=== PATIENT | female | born 1960 | race Caucasian/White ===

== ENCOUNTER 2021-12-17 09:05 | Outpatient (REF) | payer OTHER, SELFPAY ==
[2021-12-17 09:45] LABS: COVID-19 Test Positive (Negative)
== END 2021-12-17 09:06 | disposition home or self-care (01) ==
LOC: HO.LAB 09:05
PROVIDERS: Visit Provider Internal Medicine
DX: Z20.822 Contact with and (suspected) exposure to COVID-19 (principal)
CPT/HCPCS: 87635; C9803

== ENCOUNTER 2024-10-31 18:07 | Emergency (ER) | payer MEDICARE, SELFPAY ==
[2024-10-31] VITALS (13 sets, daily range): BP systolic 134–180; BP diastolic 79–101; PULSE 25–114; RESP 14–31; TEMP 36.4–37; O2SAT 90–96; BMI 22.7
--- NOTE | ~2024-10-31 | XR_ITS ---
CLINICAL HISTORY: hypoxia 1 view chest x-ray Comparison: None Findings: Extensive bilateral multifocal patchy opacities with air bronchograms. Moderate/large right and small left bilateral layering effusions. No pneumothorax. Enlarged cardiac silhouette. No acute fracture. IMPRESSION: 1. Extensive bilateral airspace disease concerning for pneumonia. 2. Moderate/large right and small left bilateral layering effusions. This document has been electronically signed by: Ismael Cabrera MD on 10/31/2024 19:37:48
--- NOTE | ~2024-10-31 | XR_ITS ---
CLINICAL HISTORY: right pleural effusion Chest decub with right ribs Comparison: CR/WI - XR CHEST 1V - 10/31/24 19:06 EDT Findings: Right 6th lateral rib fracture. Increasing diffuse bilateral patchy opacities with air bronchograms, left worse than right. Increasing small-moderate left layering effusion. Slightly improved moderate right layering effusion. No pneumothorax. Similar prominent/enlarged cardiac silhouette. IMPRESSION: 1. Increasing diffuse bilateral patchy opacities with air bronchograms, left worse than right. 2. Worsening airspace disease, left worse than right. 3. Increasing small-moderate left layering effusion. 4. Slightly improved moderate right layering effusion. 5. Right 6th lateral rib fracture. This document has been electronically signed by: Ismael Cabrera MD on 10/31/2024 20:23:51
--- NOTE | ~2024-10-31 | CT_ITS ---
CLINICAL HISTORY: hypoxia CT angiography chest with contrast. 3D Postprocessing. Comparison: None Findings: Cardiomegaly. The thoracic aorta is normal caliber. No acute pulmonary embolus. Asymmetric soft tissue edema in the right breast, nonspecific. Extensive bulky mediastinal and hilar lymphadenopathy. Extensive multifocal bilateral pleural/parenchymal masslike and nodular consolidations with cystic/necrotic changes concerning for metastatic disease. Majority of the right middle and lower lobes are collapse, likely related to endobronchial disease. Bronchoscopy may be helpful. There is a loculated small-moderate right-sided effusion tracking along the fissure with pleural thickening and enhancement. Small left-sided effusion. Malignant effusions not excluded. Diffuse interlobular septal thickening bilaterally, lymphangitic carcinomatosis not excluded. Extensive retrocrural and retroperitoneal lymphadenopathy. Hepatomegaly. The bones are intact. No erosive changes. Diffuse anasarca. Right lateral chest wall asymmetric soft tissue edema, nonspecific. Diffuse peritoneal nodularity concerning for carcinomatosis. IMPRESSION: 1. No evidence of PE. 2. Extensive pulmonary and lymphomatous metastatic disease. Clinical correlation and comparison with prior imaging if available are advised. 3. [id number]-left irregular bilateral pleural effusions. 4. Additional findings described, please see above. This document has been electronically signed by: Ismael Cabrera MD on 10/31/2024 22:24:09
--- NOTE | 2024-10-31 18:35 | ECG_ITS ---
Test Reason : SOB Blood Pressure : */* mmHG Vent. Rate : 94 BPM Atrial Rate : 94 BPM P-R Int : 148 ms QRS Dur : 102 ms QT Int : 358 ms P-R-T Axes : 82 -30 95 degrees QTcB Int : 447 ms Normal sinus rhythm Possible Left atrial enlargement Left axis deviation Left ventricular hypertrophy with repolarization abnormality ( R in aVL , Young product ) Septal infarct , age undetermined Abnormal ECG No previous ECGs available Referred By: Leroy Watson Electronically Signed By: JARRED CONSTANTINO MD
--- NOTE | 2024-10-31 19:35 | ED.GENADULT ---
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 Schwarz at [facility] presents for evaluation of shortness of breath. Patient reports that she was recently admitted to [facility] for about 2 weeks and discharged 10 days ago. 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 Per family, there were several attempts to place a PleurX catheter that were unsuccessful. The patient ultimately had a chest tube placed that remained in place for over 1 week Family also describes a procedure of ?flushing the pleural space with a solution for about 2 hours before removing it. The patient also recently started a new medication called Fotivda. The patient at night when she got up to go to the bathroom. She reported increased shortness of breath. Denies any chest pain. She denies any fevers, chills. She does endorse legs his own which she is currently taking The patient also received Solu-Medrol 125 mg IV from EMS Related Data Allergies Allergy/AdvReac Type Severity Reaction Status Date / Time No Known Allergies Allergy Verified 10/31/24 18:21 Review of Systems Constitutional: Constitutional: Denies body ache(s), Denies chills, Denies fever(s) and Denies headache(s) Eyes: Eyes: Denies blurry vision ENT: Denies vertigo, Denies headache(s) and Denies sore throat Cardiovascular: Cardiovascular: Denies chest pain, Reports leg edema and Reports dyspnea Respiratory: Respiratory: Reports cough, Reports dyspnea and Reports wheezing Gastrointestinal: Gastrointestinal: Denies abdominal pain, Denies nausea and Denies vomiting Musculoskeletal: Musculoskeletal: Denies back pain Integumentary/Breasts: Skin/Breast: Denies rash Neurologic: Denies vertigo and Denies headache(s) Psychiatric: Psychiatric: Denies anxiety Allergic/Immunologic: Allergic/Immunologic: Reports wheezing PMFSH Social History Social History Smoked in Last 30 Days: No Use of substances other than those prescribed or required for medical reasons: No Advance Directives: No Advance Directives Information Provided: No Physical Exam ED Vital Signs: Vital Signs - 24 hr 10/31/24 18:17 10/31/24 19:01 10/31/24 20:16 Temperature 97.7 F 97.5 F Pulse Rate 91 96 96 Respiratory Rate 18 22 H 22 H Blood Pressure 171/85 H 156/89 H 155/79 H Pulse Oximetry 90 L 93 94 Oxygen Delivery Method Nasal Cannula Nasal Cannula Oxymask Oxygen Flow Rate 6 8 10/31/24 20:39 10/31/24 20:43 10/31/24 21:25 Temperature 98.6 F Pulse Rate 96 111 H Respiratory Rate 31 H 26 H 14 Blood Pressure 134/83 159/92 H Pulse Oximetry 94 92 Oxygen Delivery Method Oxymask Oxymask Oxygen Flow Rate 7 7 10/31/24 21:43 10/31/24 22:03 10/31/24 22:18 Temperature Pulse Rate 112 H 114 H 108 H Respiratory Rate 27 H 25 H 21 H Blood Pressure 166/101 H 153/92 H Pulse Oximetry 92 92 Oxygen Delivery Method Oxymask Oxymask Oxygen Flow Rate 7 8 10/31/24 22:19 10/31/24 23:14 10/31/24 23:44 Temperature Pulse Rate 107 H Respiratory Rate 22 H 26 H Blood Pressure 147/90 H 143/81 H Pulse Oximetry 94 Oxygen Delivery Method Oxymask Oxygen Flow Rate 10 10/31/24 23:59 11/01/24 00:21 11/01/24 00:22 Temperature Pulse Rate 103 H Respiratory Rate 21 H 25 H Blood Pressure 134/84 152/90 H Pulse Oximetry 93 Oxygen Delivery Method Humidified O2 Oxymask Oxygen Flow Rate 9 11/01/24 01:41 11/01/24 01:42 Temperature 97.9 F 97.9 F Pulse Rate 103 H 103 H Respiratory Rate 25 H 25 H Blood Pressure 137/79 137/79 Pulse Oximetry 94 94 Oxygen Delivery Method Oxymask Oxymask Oxygen Flow Rate 10 10 BMI result Body Mass Index 22.7 Const General: alert and awake Nutritional Appearance: well nourished Orientation/consciousness: patient oriented x3 HENMT Head: Yes normocephalic and Yes atraumatic Eyes Eyelids: Yes eyelids normal Conjunctivae: conjunctivae normal Sclerae: sclerae normal Corneas: corneas normal Pupils: Equal, round and reactive pupils present EOM: EOMs intact bilaterally Neck Neck: Yes full ROM Resp Other: Increased respiratory effort. Diminished breath sounds on the right lung marcus, Effort & Inspection: abnormal respiratory effort and respiratory distress Auscultation: not clear to auscultation bilaterally and diminished lung sounds Cardio Other: 2+ pitting edema to the lower extremities bilaterally Rate: regular rate Rhythm: regular rhythm GI Inspection: No distended Palpation (GI): Soft to palpation, not firm, nontender, no guarding and not rigid Skin General skin exam: elasticity normal Neuro General: patient oriented x3 Cranial nerves: Yes Equal, round and reactive pupils present and Yes Bilaterally intact EOM present Cognition (Neuro): normal cognition Extrem Other: Moving all extremities well without any obvious deformities Course Reevaluation(s) Reevaluation #1: [place] [address], a lactic acid of 3.7 and the chest x-ray shows findings consistent with pneumonia. At this time, the patient meets sepsis criteria with hypoxia, tachypnea, elevated white count and suspected infection. She will receive IV fluids, only 300 cc of normal saline at 150 cc an hour for 2 hours, however she has moderate to large pleural effusion and we will not administer 30 cc/kilos due to risk of worsening CHF. Cefepime was ordered for broad-spectrum antibiotics. Sepsis focused exam performed, no evidence of hypoperfusion on skin exam mental status remains unchanged Time: 20:11 Reevaluation #2: I was able to discuss with the patient's oncologist, Dr. Schwraz, he would be able to manage the patient if she was transferred there but he does not have accepting privileges. He requested that I speak to either the hospitalist or ICU. I spoke to the it clinical concrete block plant supervisor who directed me to the ICU. I spoke to Leonardo Ricci, ICU PA, he does not feel the patient requires ICU level of care which I agree with. I then spoke to Dr. Brian Castillo who will accept care to the hospitalist service on the telemetry floor. I did ask for Radiology to make discs of the patient's images to be brought with the patient for transfer. When a bed as the signs, the patient will be transferred Time: 22:43 Reevaluation #3: Patient's lactic acid increase to over 6. I do not feel this is consistent with sepsis. I think the increase in lactic was more likely related to her albuterol use. Her CT scan does not show significant pneumonia but rather significant parenchymal disease and malignancy related changes Time: 00:01 Consultations Consultation #1: Attending note: The patient is a 64-year-old woman who has been treated for renal cell cancer. She has a metastatic cancer. Today she is short of breath. The CT scan shows extensive pulmonary and lymphomatous disease. I think she has ?cannonball type lesions which would be consistent with renal cell cancer. She would like to be transferred to [facility]. She had an oxygen requirement. We were able to contact the the patient's oncologist, Dr. Abdulaziz scott, and the admitting hospitalist at [facility]. The patient was accepted in transfer and was sent there by ambulance. The patient had also been covered with the antibiotics. Fuad Brown MD Medications Administered Discontinued Medications Generic Name Dose Route Start Last Admin Trade Name Freq PRN Reason Stop Dose Admin Albuterol Sulfate 5 mg/ 0 mg 10/31/24 21:58 10/31/24 22:01 Albuterol/Ipratropium 3 ml INHALE 10/31/24 21:59 1 each ONCE ONE Administration Dexamethasone Sodium Phosphate 10 mg 10/31/24 21:43 10/31/24 22:20 Dexamethasone Sod Phosphate 10 Mg/Ml Vial IVPUSH 10/31/24 21:44 10 mg ONCE ONE Administration Cefepime HCl 2 gm in 50 mls @ 100 mls/hr 10/31/24 19:49 10/31/24 21:02 Maxipime IV 10/31/24 20:18 Infused ONCE ONE Infusion Sodium Chloride 1,000 mls @ 150 mls/hr 10/31/24 20:00 10/31/24 21:02 Ns IVCONT 10/31/24 21:59 Not Given .[id number] RUBEN Sodium Chloride 300 mls @ 150 mls/hr 10/31/24 20:45 10/31/24 23:01 Ns IVCONT 10/31/24 21:59 Infused .Q2H RUBEN Infusion Iohexol 65 ml 10/31/24 21:17 10/31/24 21:18 Iohexol 350 Mg/Ml 100 Ml Infus..Btl IV 10/31/24 21:18 65 ml ONCE ONE Administration Morphine Sulfate 2 mg 10/31/24 20:34 10/31/24 20:39 Morphine Sulfate 2 Mg/Ml Cartridge IVPUSH 10/31/24 20:35 2 mg ONCE ONE Administration Protocol Morphine Sulfate 2 mg 11/01/24 00:12 11/01/24 00:22 Morphine Sulfate 2 Mg/Ml Cartridge IVPUSH 11/01/24 00:13 2 mg ONCE ONE Administration Protocol Medical Decision Making Medical Decision Making MDM Narrative: 64-year-old female with a past medical history as above presents for evaluation of shortness a breath since last night. She is currently on 6 L via nasal cannula and her oxygen saturation is around 92%. She denies any pain, she was has some leg swelling. Based on her history and exam, her condition is most likely related to a malignant pleural effusion that has recurred. Plan for a chest x-ray, basic labs, EKG. She has no fever, productive cough to suggest infectious cause. Denies any chest pain, less likely to be ACS Differential Diagnosis Differential Diagnoses: The differential diagnosis associated with the presentation includes Malignant pleural effusion Pneumonia CHF Bronchitis COVID-19 Influenza Admission/Observation Consideration of admission/observation: Escalation of care including admission/observation considered Lab Data 10/31/24 19:29 10/31/24 19:29 Labs: Lab Results 10/31/24 10/31/24 10/31/24 Range/Units 19:14 19:29 20:01 WBC 23.4 H (4.8-10.8) X10*3/uL RBC 3.31 L (4.20-5.50) X10*6/uL Hgb 9.4 L (12.0-16.0) g/dl Hct 29.5 L (37.0-47.0) % MCV 89.1 (80.0-98.0) fL MCH 28.4 (27.0-33.0) pg MCHC 31.9 (31.0-35.0) g/dl RDW 20.9 H (11.0-16.0) % Plt Count 394 (160-400) X10*3/uL MPV 9.2 L (9.4-12.3) fL Immature Gran % (Auto) 0.9 H (0.0-0.4) % Neut % (Auto) 93.9 H (45-73) % Lymph % (Auto) 1.7 L (20-40) % Bartholomew % (Auto) 3.4 (2-11) % Eos % (Auto) 0.0 (0-4) % Baso % (Auto) 0.1 (0-2) % Lymph # (Auto) 0.4 L (1.2-4.9) X10*3/uL Bartholomew # (Auto) 0.8 (0.1-1.2) X10*3/uL Eos # (Auto) 0.0 (0.0-0.4) X10*3/uL Baso # (Auto) 0.0 (0.0-0.2) X10*3/uL Abs Immat Gran (auto) 0.21 H (0.00-0.03) X10*3/uL Absolute Neuts (auto) 22.0 H (2.0-8.3) x10*3/uL Absolute Nucleated RBC 0.000 (0.0-0.012) X10*3/uL Nucleated RBC % (auto) 0.0 (0.0-0.2) /100WBC Smear Tech's Comments VERIFIED VBG pH 7.39 (7.32-7.43) VBG pCO2 33 mmHg VBG pO2 72 mmHg VBG HCO3 20 L (22-26) mmol/L VBG O2 Saturation 96.0 % VBG Base Excess -3.7 mmol/L Sodium 134 L (135-145) mmol/L Potassium 5.1 (3.3-5.1) mmol/L Chloride 102 (96-108) mmol/L Carbon Dioxide 18 L (22-29) mmol/L Anion Gap 19 (12-20) BUN 23 H (9-16) mg/dL Creatinine 0.96 (0.5-1.4) mg/dL Estim Creat Clear Calc 43.4 Estimated GFR 58 Random Glucose 196 H (60-115) mg/dL Lactic Acid 3.7 H* (0.5-2.0) mmol/L Lactic Acid F/U @ 2Hr (0.5-2.0) mmol/L Calcium 9.1 (8.4-10.2) mg/dL Magnesium 1.9 (1.6-2.6) mg/dL Total Bilirubin 0.5 (0.0-1.0) mg/dL AST 92 H (5-31) U/L ALT 19 (0-31) U/L Alkaline Phosphatase 427 H (39-117) U/L B-Natriuretic Peptide 622 H (<100) pg/mL Total Protein 6.8 (6.5-8.0) g/dL Albumin 3.5 (3.5-5.0) g/dL Lipase 7 L (8-78) U/L Influenza Type A (PCR) NEGATIVE (Negative) Influenza Type B (PCR) NEGATIVE (Negative) RSV RNA Qual (PCR) NEGATIVE (Negative) SARS-CoV-2 RNA (RT-PCR) NEGATIVE (Negative) 10/31/24 Range/Units 23:21 WBC (4.8-10.8) X10*3/uL RBC (4.20-5.50) X10*6/uL Hgb (12.0-16.0) g/dl Hct (37.0-47.0) % MCV (80.0-98.0) fL MCH (27.0-33.0) pg MCHC (31.0-35.0) g/dl RDW (11.0-16.0) % Plt Count (160-400) X10*3/uL MPV (9.4-12.3) fL Immature Gran % (Auto) (0.0-0.4) % Neut % (Auto) (45-73) % Lymph % (Auto) (20-40) % Bartholomew % (Auto) (2-11) % Eos % (Auto) (0-4) % Baso % (Auto) (0-2) % Lymph # (Auto) (1.2-4.9) X10*3/uL Bartholomew # (Auto) (0.1-1.2) X10*3/uL Eos # (Auto) (0.0-0.4) X10*3/uL Baso # (Auto) (0.0-0.2) X10*3/uL Abs Immat Gran (auto) (0.00-0.03) X10*3/uL Absolute Neuts (auto) (2.0-8.3) x10*3/uL Absolute Nucleated RBC (0.0-0.012) X10*3/uL Nucleated RBC % (auto) (0.0-0.2) /100WBC Smear Tech's Comments VBG pH (7.32-7.43) VBG pCO2 mmHg VBG pO2 mmHg VBG HCO3 (22-26) mmol/L VBG O2 Saturation % VBG Base Excess mmol/L Sodium (135-145) mmol/L Potassium (3.3-5.1) mmol/L Chloride (96-108) mmol/L Carbon Dioxide (22-29) mmol/L Anion Gap (12-20) BUN (9-16) mg/dL Creatinine (0.5-1.4) mg/dL Estim Creat Clear Calc Estimated GFR Random Glucose (60-115) mg/dL Lactic Acid (0.5-2.0) mmol/L Lactic Acid F/U @ 2Hr 6.7 H* (0.5-2.0) mmol/L Calcium (8.4-10.2) mg/dL Magnesium (1.6-2.6) mg/dL Total Bilirubin (0.0-1.0) mg/dL AST (5-31) U/L ALT (0-31) U/L Alkaline Phosphatase (39-117) U/L B-Natriuretic Peptide (<100) pg/mL Total Protein (6.5-8.0) g/dL Albumin (3.5-5.0) g/dL Lipase (8-78) U/L Influenza Type A (PCR) (Negative) Influenza Type B (PCR) (Negative) RSV RNA Qual (PCR) (Negative) SARS-CoV-2 RNA (RT-PCR) (Negative) Independent Interpretation I performed an independent interpretation of an: Plain X-Ray (Large right-sided pleural effusion. Multiple lung masses noted) Critical Care Time Critical Care Time Critical Care Time: Yes Total Critical Care Time: 60 Attestation: 64-year-old female presents for evaluation of shortness of breath, she arrives in respiratory distress. She required numerous re-evaluations, consultants with outside providers and ultimately transfer to outside facility Discharge Plan Discharge Clinical Impression: Acute hypoxemic respiratory failure, Renal cell carcinoma Patient Disposition: er [facility] Transfer Details: [facility] Interventions: Acute Care Transfer Worksheet (ED) Last Done: 11/01/24 01:42 Discharge Date/Time: 11/01/24 01:43 Print Language: Maori Sepsis Bolus Exclusion Sepsis Bolus Exclusion CHF/Renal Failure This patient met severe sepsis criteria due to the following condition(s):: Lactate>=4mmol/L In my clinical judgement the administration of 30 ml/kg of crystalloid would be detrimental to this patient due to the patient's following conditions:: Concern for fluid overload Replace the 30 mls/kg with (Zero amount not acceptable and all fluids for severe sepsis must be given at GREATER than 125 mls/hr) Crystalloids amount given in mls: (rate must be at least 150cc/hr): 300 Colloids amount given in mls:: 0
[2024-10-31 19:46] LABS: Basophils Percent Auto 0.1 % (0-2); Hematocrit 29.5 % (37.0-47.0); Hemoglobin 9.4 g/dl (12.0-16.0); Imm Gran Abs Auto 0.21 X10*3/uL (0.00-0.03); Imm Gran Pct Auto 0.9 % (0.0-0.4); Lymphocytes Absolute Auto 0.4 X10*3/uL (1.2-4.9); Lymphocytes Percent Auto 1.7 % (20-40); MANUAL DIFF FLAG SCAN; Mean Corpuscular HGB Conc 31.9 g/dl (31.0-35.0); Mean Corpuscular Hemoglobin 28.4 pg (27.0-33.0); Mean Corpuscular Volume 89.1 fL (80.0-98.0); Mean Platelet Volume 9.2 fL (9.4-12.3); Monocytes Absolute Auto 0.8 X10*3/uL (0.1-1.2); Monocytes Percent Auto 3.4 % (2-11); Neutrophils Percent Auto 93.9 % (45-73); Platelet Count 394 X10*3/uL (160-400); Red Blood Count 3.31 X10*6/uL (4.20-5.50); Red Cell Distribution Width 20.9 % (11.0-16.0); SCAN SMEAR FLAG 1; White Blood Count 23.4 X10*3/uL (4.8-10.8)
[2024-10-31 19:53] LABS: Alanine Aminotransferase 19 U/L (0-31); Albumin Level 3.5 g/dL (3.5-5.0); Alkaline Phosphatase 427 U/L (39-117); Anion Gap 19 (12-20); Aspartate Amino Transferase 92 U/L (5-31); Bilirubin Total 0.5 mg/dL (0.0-1.0); Blood Urea Nitrogen 23 mg/dL (9-16); Calcium 9.1 mg/dL (8.4-10.2); Carbon Dioxide 18 mmol/L (22-29); Chloride 102 mmol/L (96-108); Creatinine Clr Calc Pharmacy 43.4; Estimated Glomerular Filt Rate 58; Glucose Random 196 mg/dL (60-115); Lipase 7 U/L (8-78); Magnesium 1.9 mg/dL (1.6-2.6); Potassium 5.1 mmol/L (3.3-5.1); Sodium 134 mmol/L (135-145); Total Protein 6.8 g/dL (6.5-8.0)
[2024-10-31 19:58] LABS: Lactic Acid 3.7 mmol/L (0.5-2.0)
[2024-10-31 20:04] LABS: VBG Base Excess -3.7 mmol/L; VBG HCO3 20 mmol/L (22-26); VBG pCO2 33 mmHg; VBG pH 7.39 (7.32-7.43); VBG pO2 72 mmHg
[2024-10-31 20:05] LABS: Venous Blood Gas Refer to POC result
[2024-10-31] MEDS: cefEPime HCl/D5W 2 GM/50 ML PIGGYBACK IV (20:10)
[2024-10-31 20:12] LABS: Influenza A PCR NEGATIVE (Negative); Influenza B PCR NEGATIVE (Negative); Resp Syncy Virus RNA Qual PCR NEGATIVE (Negative); SARS COV2 PCR INHOUSE NEGATIVE (Negative)
[2024-10-31 20:16] LABS: B Type Natriuretic Peptide 622 pg/mL (<100)
[2024-10-31 20:18] LABS: SLIDE REVIEW VERIFIED
[2024-10-31] MEDS: Morphine Sulfate 2 MG/ML CARTRIDGE IVPUSH (20:39)
[2024-10-31] MEDS: 0.9 % Sodium Chloride 300 ML 150 ML IVCONT (20:39)
[2024-10-31] MEDS: iohexoL 350 MG/ML 100 ML INFUS..BTL 65 ML IV (21:18)
[2024-10-31 21:34] LABS: Reflex Lactate? Lactic Acid Added
[2024-10-31] MEDS: Albuterol Sulfate 5 MG, Albuterol/Iprat 2.5/0.5MG 3 ML 3 ML INHALE (22:01)
[2024-10-31] MEDS: dexAMETHasone sod phosphate 10 MG/ML VIAL IVPUSH (22:20)
[2024-10-31 23:48] LABS: ~Lactic Acid-LAB USE ONLY 6.7 mmol/L (0.5-2.0)
[2024-11-01 00:21] VITALS: BP 152/90; PULSE 103; RESP 21; O2SAT 93
[2024-11-01 00:22] VITALS: RESP 25
[2024-11-01] MEDS: Morphine Sulfate 2 MG/ML CARTRIDGE IVPUSH (00:22)
--- NOTE | 2024-11-01 01:11 | PC.NURSE ---
Called report to [facility] tele[facility] unit SHAHZAD Patterson
[2024-11-01 01:28] LABS: Reflex Lactate? 2 Y
[2024-11-01 01:41] VITALS: BP 137/79; PULSE 103; RESP 25; TEMP 36.6; O2SAT 94
[2024-11-01 01:42] VITALS: BP 137/79; PULSE 103; RESP 25; TEMP 36.6; O2SAT 94
== END 2024-11-01 01:43 | disposition short-term general hospital (02) ==
PROVIDERS: Physician Assistant; Emergency Provider Emergency Medicine; PCP Physician Assistant Surgical
DX: J96.01 Acute respiratory failure with hypoxia (principal); C64.9 Malignant neoplasm of unspecified kidney, except renal pelvis; C79.51 Secondary malignant neoplasm of bone; D72.829 Elevated white blood cell count, unspecified
CPT/HCPCS: 0241U; 71045; 71048; 71275; 80053; 82803; 83605; 83690; 83735; 83880; 85025; 87040; 93005; 94640; 96361; 96365; 96375; 99285; J0692; J1100; J2270; Q9967

== ENCOUNTER → 2024-10-31 18:35 | Outpatient (BNV) | payer MEDICARE, SELFPAY | PROVIDERS: Emergency Provider Emergency Medicine; PCP Physician Assistant Surgical; Visit Provider Internal Medicine Cardiovascular Disease | DX: I51.7 Cardiomegaly (principal) | CPT/HCPCS: 93010 ==

== ENCOUNTER → 2024-10-31 18:35 | Outpatient (BNV) | payer MEDICARE, SELFPAY | PROVIDERS: Emergency Provider Emergency Medicine; PCP Physician Assistant Surgical; Visit Provider Radiology Diagnostic Radiology | DX: C77.1 Secondary and unspecified malignant neoplasm of intrathoracic lymph nodes (principal); S22.31XA Fracture of one rib, right side, initial encounter for closed fracture; J90 Pleural effusion, not elsewhere classified; R91.8 Other nonspecific abnormal finding of lung field | CPT/HCPCS: 71045; 71048; 71275 ==